=== PATIENT | female | born 1980 | race American Indian/Alaskan Native ===

== ENCOUNTER 2018-03-24 21:20 | Emergency (ER) | payer MEDICAID ==
[2018-03-24 21:40] VITALS: BMI 42.9
[2018-03-24 21:46] VITALS: RESP 18; O2SAT 98
[2018-03-24] MEDS ORDERED: Albuterol-Ipratrop 3 mg / 0.5 (3 ml) UD IH STA (22:23)
--- NOTE | 2018-03-24 22:47 | ED PDOC ---
Arrival/HPI - General Chief Complaint: ENT Problem Time Seen by Provider: 03/24/18 21:37 Historian: Patient - History of Present Illness Narrative History of Present Illness (Text): 03/24/18 22:23 37 year old female, with past medical history of asthma, presents to the Emergency department complaining of mild shortness of breath prior to arrival. Patient informs running out of her inhaler making it uncomfortable for her to breathe. Patient feels her throat is closing and requests medical attention. Patient denies any fever, chills, nausea, vomiting, diarrhea, abdominal pain, chest pain, or any other complaints. Time/Duration: Prior to Arrival Symptom Onset: Gradual Symptom Course: Unchanged Activities at Onset: Light Context: Home Past Medical History - Provider Review Nursing Documentation Reviewed: Yes - Psychiatric Hx Psychophysiologic Disorder: No Hx Substance Use: No Family/Social History - Physician Review Nursing Documentation Reviewed: Yes Family/Social History: No Known Family HX Smoking Status: Never Smoked Hx Alcohol Use: No Hx Substance Use: No Allergies/Home Meds Allergies/Adverse Reactions: Allergies Penicillins Allergy (Verified 03/24/18 21:42) RASH Review of Systems - Physician Review All systems were reviewed & negative as marked: Yes - Review of Systems Constitutional: Normal. absent: Fevers Eyes: Normal ENT: Normal Respiratory: SOB Cardiovascular: Normal. absent: Chest Pain Gastrointestinal: Normal. absent: Abdominal Pain, Diarrhea, Nausea, Vomiting Genitourinary Female: Normal Musculoskeletal: Normal Skin: Normal Neurological: Normal Endocrine: Normal Hemo/Lymphatic: Normal Psychiatric: Normal Physical Exam Vital Signs Reviewed: Yes Vital Signs Temp Pulse Resp BP Pulse Ox 03/24/18 23:52 98.5 F 86 18 115/78 98 03/24/18 23:30 86 18 115/78 98 03/24/18 21:45 99.1 F 84 18 124/61 98 Temperature: Afebrile Blood Pressure: Normal Pulse: Regular Respiratory Rate: Normal Appearance: Positive for: Well-Appearing, Non-Toxic, Comfortable Pain Distress: None Mental Status: Positive for: Alert and Oriented X 3 - Systems Exam Head: Present: Atraumatic, Normocephalic Pupils: Present: PERRL Extroacular Muscles: Present: EOMI Conjunctiva: Present: Normal Mouth: Present: Moist Mucous Membranes Pharnyx: Present: ERYTHEMA Neck: Present: Normal Range of Motion Respiratory/Chest: Present: Good Air Exchange, Wheezes (mild). No: Respiratory Distress, Accessory Muscle Use Cardiovascular: Present: Regular Rate and Rhythm, Normal S1, S2. No: Murmurs Upper Extremity: Present: Normal Inspection. No: Cyanosis, Edema Lower Extremity: Present: Normal Inspection. No: Edema Neurological: Present: GCS=15, CN II-XII Intact, Speech Normal Skin: Present: Warm, Dry, Normal Color. No: Rashes Psychiatric: Present: Alert, Oriented x 3, Normal Insight, Normal Concentration Medical Decision Making ED Course and Treatment: 03/24/18 22:23 Impression: 37 year old female presents to the Emergency department for shortness of breath. Differential Diagnosis included but are not limited to: asthma exacerbation Plan: -- Decadron -- Albuterol -- Rapid Strep -- Influenza AB -- Reassess and disposition Progress Notes: - Lab Interpretations Lab Results: Lab Results 03/24/18 22:30: Influenza Typ A,B (EIA) Negative for flu a/b, Grp A Beta Strep Ag Positive H - Medication Orders Current Medication Orders: Discontinued Medications Albuterol/Ipratropium (Duoneb 3 Mg/0.5 Mg (3 Ml) Ud) 3 ml IH STAT STA Stop: 03/24/18 22:24 Last Admin: 03/24/18 22:35 Dose: 3 ml Clarithromycin (Biaxin Filmtab) 500 mg PO STAT STA PRN Reason: Protocol Stop: 03/24/18 23:00 Last Admin: 03/24/18 23:21 Dose: 500 mg Dexamethasone (Decadron Inj) 10 mg IM STAT STA Stop: 03/24/18 22:24 Last Admin: 03/24/18 22:35 Dose: 10 mg IM Administration Charges Document 03/24/18 22:35 IT (Rec: 03/24/18 22:35 IT [id number]) Injection Site MAR Injection Site Left Deltoid Charges for Administration # of IM Administrations 1 - Scribe Statement The provider has reviewed the documentation as recorded by the Scribe Maikel Chauhan. All medical record entries made by the Scribe were at my direction and personally dictated by me. I have reviewed the chart and agree that the record accurately reflects my personal performance of the history, physical exam, medical decision making, and the department course for this patient. I have also personally directed, reviewed, and agree with the discharge instructions and disposition. Disposition/Present on Arrival - Present on Arrival Any Indicators Present on Arrival: No History of DVT/PE: No History of Uncontrolled Diabetes: No Urinary Catheter: No History of Decub. Ulcer: No History Surgical Site Infection Following: None - Disposition Have Diagnosis and Disposition been Completed?: Yes Diagnosis: Pharyngitis Disposition: HOME/ ROUTINE Disposition Time: 23:50 Condition: GOOD Discharge Instructions (ExitCare): Strep Throat (DC) Prescriptions: Nebulizer [Airs Disposable Nebulizer] 1 each MC QID #1 each Albuterol 0.5% [Albuterol 0.5% Inhal Sabina (2.5 mg/0.5 ml) UD] 0.25 ml IH QID #20 neb Clarithromycin [Biaxin Filmtab] 500 mg PO BID #20 tab Albuterol Sulfate [Ventolin Hfa] 1 puff IH QID #1 inhaler [facility] - Follow up with primary Forms: [facility] (Croatian), WORK NOTE
[2018-03-24 22:55] LABS: INFLUENZA A B NEGATIVE FOR FLU A/B (NEGATIVE)
[2018-03-24 23:31] VITALS: BP 115/78; PULSE 86
[2018-03-24 23:54] VITALS: TEMP 98.5
== END 2018-03-24 23:54 | disposition home or self-care (01) ==
LOC: ED 21:20 → MERGE 21:20 → ED 23:54
DX: J02.9 Acute pharyngitis, unspecified (principal)
CPT/HCPCS: 87430; 87804; 96372; 99283; J1100